=== PATIENT | female | born 1995 | race Caucasian/White ===

== ENCOUNTER 2016-07-23 12:15 | Emergency (ER) | payer MEDICAID, OTHER ==
[2016-07-23 12:30] VITALS: BP 127/91
--- NOTE | 2016-07-23 13:20 | UC ---
Respiratory Complaint HPI - HPI Summary HPI Summary: ST and laryngitis starting about 2 weeks ago for several days, then nasal and chest congestion for about the last week. Still blowing nose a lot, denies trouble breathing or wheezing. No fevers or chills. - History of Current Complaint Chief Complaint: UCRespiratory Stated Complaint: COUGH Time Seen by Provider: 07/23/16 12:43 Hx Obtained From: Patient Hx Last Menstrual Period: 06/25/16 ?: No Onset/Duration: Gradual Onset, Lasting Weeks Timing: Constant Severity Initially: Mild Severity Currently: Mild Character: Cough: Nonproductive Aggravating Factors: Nothing Alleviating Factors: Nothing Associated Signs And Symptoms: Positive: URI, Nasal Congestion, Hoarseness - Allergies/Home Medications Allergies/Adverse Reactions: Allergies Allergy/AdvReac Type Severity Reaction Status Date / Time Amoxicillin Allergy See Comment Verified 08/28/15 15:46 PMH/Surg Hx/FS Hx/Imm Hx Endocrine History Of: Reports: Thyroid Disease - Surgical History Surgical History: Yes Surgery Procedure, Year, and Place: tonsills, rhinoplasty, appy, wisdom teeth. - Family History Known Family History: Positive: Hypertension - Social History Alcohol Use: Occasionally Substance Use Type: None Smoking Status (MU): Never Smoked Tobacco Review of Systems Constitutional: Negative Skin: Negative Eyes: Negative ENT: Sore Throat, Nasal Discharge Respiratory: Cough Cardiovascular: Negative Gastrointestinal: Negative Genitourinary: Negative Motor: Negative Neurovascular: Negative Musculoskeletal: Negative Neurological: Negative Psychological: Negative All Other Systems Reviewed And Are Negative: Yes Physical Exam Triage Information Reviewed: Yes Appearance: Well-Appearing, No Pain Distress, Well-Nourished Vital Signs: Initial Vital Signs Temp 98.2 F 07/23/16 12:26 Pulse 99 07/23/16 12:26 Resp 18 07/23/16 12:26 BP 127/91 07/23/16 12:26 Pulse Ox 100 07/23/16 12:26 Vital Signs Reviewed: Yes Eye Exam: Normal Eyes: Positive: Conjunctiva Clear ENT: Positive: Pharynx normal, Nasal congestion, TMs normal. Negative: Tonsillar swelling - s/p tonsillectomy Dental Exam: Normal Neck exam: Normal Neck: Positive: Supple, Nontender, No Lymphadenopathy Respiratory Exam: Normal Respiratory: Positive: Chest non-tender, Lungs clear, Normal breath sounds, No respiratory distress, No accessory muscle use Cardiovascular Exam: Normal Cardiovascular: Positive: RRR - high 90s on exam, No Murmur Musculoskeletal Exam: Normal Neurological Exam: Normal Psychological Exam: Normal Skin Exam: Normal UC Diagnostic Evaluation - Laboratory O2 Sat by Pulse Oximetry: 100 Respiratory Course/Dx - Differential Dx/Diagnosis Provider Diagnoses: URI, likely viral Discharge - Discharge Plan Condition: Stable Disposition: HOME Prescriptions: Benzonatate CAP* [Tessalon CAP*] 100 mg PO TID PRN #30 cap PRN Reason: Cough Guaifenesin-Codeine [Guaiatussin AC] 5 - 10 ml PO Q6H #240 ml MDD 40mL Patient Education Materials: Upper Respiratory Infection (ED) Referrals: No Primary Care Phys,NOPCP [Primary Care Provider] - Additional Instructions: Try using a spray decongestant (like afrin) at bedtime with the flonase in the morning. If you develop fever, trouble breathing, or pain in the face please call or return. I will be here again Wednesday after noon; if you have no improvement or develop facial pain, simply call and get me a message about your condition. Call or return if you develop increasing fever, shortness of breath, chest pain , bloody sputum, or otherwise worsen. If you have not improved at all after several days, contact your primary care physician or return here.
== END 2016-07-23 13:15 | disposition home or self-care (01) ==
LOC: UCEAST 12:15
DX: J06.9 Acute upper respiratory infection, unspecified (principal); Z88.1 Allergy status to other antibiotic agents
CPT/HCPCS: 99212; G0463